=== PATIENT | female | born 1950 | race Caucasian/White ===

== ENCOUNTER 2019-03-21 11:40 | Emergency (ER) | payer MEDICARE, OTHER ==
[~2019-03-21] VITALS: Ht 162.6 cm; Wt 51.3 kg
--- OUTSIDE RECORDS SUMMARY | ~2019-03-21 | XMS | Clinical Summary ---
Demographics + + + | Address | [address] | | | [place] [address] | + + + | Home Phone | | + + + | Preferred Language | Unknown | + + + | Marital Status | | + + + | Episcopal Affiliation | Unknown | + + + | Race | Unknown | + + + | Ethnic Group | Unknown | + + + Author + + + | Author | [facility] | | | and [facility] | + + + | Organization | [facility] | | | and [facility] | + + + | Address | Unknown | + + + | Phone | Unavailable | + + + Care Team Providers + +------+ + | Care Saddle Mechanic Name | Role | Phone | + +------+ + PCP | Unavailable | + +------+ + Allergies Not on File Medications Not on file Active Problems Not on file Social History + +-------+ +--------+------+ | Tobacco Use | Types | Packs/Day | Years | Date | | | | | Used | | + +-------+ +--------+------+ | Never Assessed | | | | | + +-------+ +--------+------+ + + + | Sex Assigned at | Date Recorded | | | | + + + | Not on file | | + + + + + + + | Job Start Date | Occupation | Industry | + + + + | Not on file | Not on file | Not on file | + + + + + + + + | Travel History | Travel Start | Travel End | + + + + + + | No recent travel history available. | + + Last Filed Vital Signs + + + + | Vital Sign | Reading | Time Taken | + + + + | Blood Pressure | 128/78 | 10/16/2016 1310 PDT | + + + + | Pulse | 77 | 10/16/2016 1310 PDT | + + + + | Temperature | 36.7 C (98 F) | 10/16/2016 1310 PDT | + + + + | Respiratory Rate | 16 | 10/16/20161309 PDT | + + + + | Oxygen Saturation | 98% | 10/16/20161309 PDT | + + + + | Inhaled Oxygen | - | - | | Concentration | | | + + + + | Weight | 52.3 kg (115 lb 3.8 | 10/16/20161309 PDT | | | oz) | | + + + + | Height | 162.6 cm (5' 4.02") | 10/16/20161309 PDT | + + + + | Body Mass Index | 19.77 | 10/16/2016 1310 PDT | + + + + Plan of Treatment + + + + + | Health Maintenance | Due Date | Last Done | Comments | + + + + + | Vaccine: | | | | | Dtap/Tdap/Td (1 - | 9 | | | | Tdap) | | | | + + + + + | Vaccine: Zoster (1 | | | | | of 2) | 0 | | | + + + + + | Vaccine: | | | | | Pneumococcal 65+ | 5 | | | | Low/Medium Risk (1 | | | | | of 2 - PCV13) | | | | + + + + + | Vaccine: Influenza | | | | | (#1) | 9 | | | + + + + + Results Not on filefrom Last 3 Months
--- OUTSIDE RECORDS SUMMARY | ~2019-03-21 | XMS | Clinical Summary ---
Demographics + + + | Address | [address] | | | [place] [address] | + + + | Home Phone | | + + + | Preferred Language | Unknown | + + + | Marital Status | | + + + | Roman Catholic Affiliation | Unknown | + + + | Race | Unknown | + + + | Ethnic Group | Unknown | + + + Author + + + | Author | [facility] | | | and [facility] | + + + | Organization | [facility] | | | and [facility] | + + + | Address | Unknown | + + + | Phone | Unavailable | + + + Care Team Providers + +------+ + | Care Assistant Plant Controller Name | Role | Phone | + [...]
[2019-03-21] MEDS ORDERED: VITAMIN D3 COM1 EACH PO (12:06)
[2019-03-21] MEDS ORDERED: LEVOTHYROXINE125 MCG PO (12:07)
[2019-03-21] MEDS ORDERED: LISINOPRIL20 MG PO (12:08)
[2019-03-21] MEDS ORDERED: FORTEO2.4 ML SUB-Q (12:10)
[2019-03-21] MEDS ORDERED: METOPROLOL SUCC25 MG PO (13:31)
--- NOTE | 2019-03-22 13:07 | EKG ---
[facility] [address] [place], [place] [address] Signed Normal sinus rhythm Possible Anterior infarct , age undetermined Abnormal ECG No previous ECGs available Confirmed by JON RAY DO ([id number]) on 03/22/2019 1:07:27 PM Electronically Signed By: JON RAY DO 03/22/19 1307 PATIENT NAME: ALISHA COWAN Electrocardiogram DATE OF : 50 PHYSICIAN: JON RAY DO REPORT #: [id number] REPORT IS CONFIDENTIAL AND NOT TO BE RELEASED WITHOUT AUTHORIZATION
== END 2019-03-21 14:00 | disposition home or self-care (01) ==
LOC: ED 11:40
DX: I10 Essential (primary) hypertension (principal); Z91.030 Bee allergy status; Z79.899 Other long term (current) drug therapy
CPT/HCPCS: 71045; 80053; 81001; 84484; 85025; 93005; 93010; 99284-25